=== PATIENT | male | born 1955 | race Caucasian/White ===

== ENCOUNTER 2017-09-18 05:26 | Day surgery (SDC) | payer OTHER ==
[~2017-09-18] VITALS: Ht 172.7 cm; Wt 113.4 kg
--- NOTE | ~2017-09-18 | S ---
[facility] [place] [address] SURGICAL PATH RPT PROCEDURE Name: ROCK WAGONER Room #: DEP [facility]..#: [id number] Admission: 09/18/17 Date of : 55 Discharge: 09/18/17 Report #: [id number] Path Case #: [id number] PATHOLOGY REPORT COLLECTION DATE: 09/18/2017 RECEIVED DATE: 09/18/2017 SUBMITTING PHYS: Dr. Logan Mike OTHER PHYS: SPECIMEN(S) RECEIVED: A.BCCA scalp, double strand is right, single strand is inferior, posterior B.Lesion left upper back C.Lesion Right lower back * * * * * * * * * * * * FINAL DIAGNOSIS: A. Skin, scalp, excision: - BASAL CELL CARCINOMA. - Margins of resection free of malignancy. B. Skin, lesion left upper back, excision: - Seborrheic keratosis. - Negative for malignancy. C. Skin, lesion right lower back, excision: - Junctional nevus arising in a background of lentigo. - Margins free. - Negative for malignancy. COMMENT: Immunohistochemical stain Melan-A is performed on block C and it supports the diagnosis rendered. Part C is co-reviewed with Dr. Teresa Ortega (board certified dermatopathologist). (IUV:[facility]; 09/21/2017) PATHOLOGIST: Latasha Collier M.D. REPORT ELECTRONICALLY SIGNED BY: Latasha Collier M.D. DATE/TIME: 09/22/2017 09:59 * * * * * * * * * * * * GROSS PATHOLOGY: A. Specimen is received fresh from the OR labeled with the patient's name, and "basal cell carcinoma scalp -double strand is right, single strand is inferior/posterior" consists of an oriented ellipse of skin measuring 1.8 x 1.5 x 0.5 cm. The double strand is assigned 12:00, the single strand is assigned 3:00, at this point the specimen is [address] [address] SURGICAL PATH RPT PROCEDURE Name: ROCK WAGONER Room #: DEP [facility].#: [id number] Admission: 09/18/17 Date of : 55 Discharge: 09/18/17 Report #: [id number] Path Case #: [id number] inked as follows: 12:00 to 3:00 to 6:00 is inked black, the 6:00 to 9:00 is inked blue, and the 9:00 to 12:00 is inked green. The specimen is serially sectioned and entirely submitted for frozen section in FSA1 and FSA2, these are subsequently submitted for permanent sections as A1 and A2. (IUV:pit; 09/19/2017) B. Received in formalin labeled "Rock Wagoner, lesion left upper back" is an unoriented skin ellipse measuring 1.0 x 0.8 x 0.8 cm. The skin surface has a centrally located kim-brown lesion measuring 0.4 x 0.4 by less than 0.1 cm. The margins are inked black. The specimen is serially sectioned into 5 pieces, and submitted entirely in cassette B1-B2. The tips are submitted in cassette B2. ([facility]; 09/19/2017) C. Received in formalin labeled "Rock Wagoner, lesion right lower back" is an unoriented skin ellipse measuring 1.1 x 0.8 x 0.7 cm. The skin surface has a centrally located flat kim-brown lesion measuring 0.4 x 0.4 cm. The margins are inked black. The specimen is serially sectioned into 4 pieces and submitted entirely in cassettes C1-C2. The tips are submitted in cassette C2. ([facility]; 09/19/2017) FROZEN SECTION DIAGNOSIS: FSA1, FSA2, skin, basal cell carcinoma scalp, excision: - BASAL CELL CARCINOMA. - Margins of resection without invasive carcinoma. - These findings are discussed with Dr. Logan Mike in OR 1 at [facility] and a written report is placed in the patient's chart. (IUV:[facility]; 09/19/2017) Frozen section performed by Dr. Parminder Collier at [address] , [place] [address] CLINICAL HISTORY: Basal cell carcinoma of the scalp, previously sampled basal cell carcinoma on a punch biopsy. INITIAL CPT CODE(S): A; 15455, 06626, 76091 B; 28549 C; 47625, 63608 Professional services performed by [facility] at [address] , [place] [address] Technical services performed by [facility] at [address] [place] [id number] SURGICAL PATH RPT PROCEDURE Name: ROCK WAGONER Room #: [facility] M.R.#: [id number] Admission: 09/18/17 Date of : 55 Discharge: 09/18/17 Report #: [id number] Path Case #: [id number] [place] [address]. [facility] [address] [place] [address] PHONE: [phone] DIRECTOR: Travis Bocanegra M.D. * * * END OF REPORT * * *
--- NOTE | ~2017-09-18 | O ---
[facility] [place] [address] OPERATIVE REPORT Name: ROCK GODFREY Room #: DEP [facility].#: [id number] Admission: 09/18/17 Attend Phys: Logan Mike MD Discharge: 09/18/17 Date of : 55 Report #: [id number] THIS REPORT FOR: //name// CC: Gisel Mike DATE OF SERVICE: 09/18/[address] Gisel Mike, Dr. Logan Mike. PREOPERATIVE DIAGNOSES: Basal cell carcinoma of the skin of the scalp measuring 4.3 x 2.6 cm, left upper back hyperpigmented skin lesion measuring 1.3 x 1.2 cm and lower back hyperpigmented skin lesion measuring 1.3 x 1.1 cm. PROCEDURE: Excision of 4.3 x 2.6 cm basal cell carcinoma of the skin and the scalp with complex layered closure and pathological consultation for frozen section of the margins, excision of left upper back 1.3 x 1.2 cm lesion and lower back 1.3 x 1.1 cm hyperpigmented skin lesion with simple closure. SURGEON: Logan Mike M.D. ANESTHESIA: Local. DESCRIPTION OF PROCEDURE: The patient was brought to the operating room and placed on operative table in the prone position. The scalp was shaved, prepped and draped in a sterile fashion along with the left upper back lesion. Skin and subcutaneous tissue were then infiltrated with 0.5% Marcaine and 1% Xylocaine in a 1:1 mixture. Elliptical skin incision measuring 4.3 x 2.6 cm was performed on the malignant scalp lesion using #15 scalpel blade. Hemostasis was obtained using electrocautery. Dissection was carried down through the subcutaneous tissue and widely around this malignant skin lesion. It was completely excised and oriented for the pathologist with a double strand nylon suture being left side and a single strand nylon suture being anterior posterior margin. This was then given to the pathologist in the operating room for gross and frozen section of the margins which was clear of any tumor. Meticulous hemostasis was obtained using electrocautery. Flaps were then developed superiorly, inferiorly, medially and laterally using the electrocautery. The deep subcutaneous tissue of the scalp was then reapproximated using simple interrupted 3-0 Vicryl sutures and the skin then closed with interrupted vertical mattress and simple 4-0 nylon sutures. Wound was then dressed with antibiotic ointment. Attention was then turned to the left upper back skin lesion measuring 1.3 x 1.2 cm. This was excised elliptically using #15 scalpel blade and sent as specimen to pathology. Hemostasis was obtained in the area using the electrocautery. The skin was then closed using interrupted vertical mattress and simple 4-0 nylon sutures. The lower back skin lesion was then prepped and draped in a sterile fashion and [address] [address] OPERATIVE REPORT Name: ROCK GODFREY Room #: DEP [facility] Josue#: [id number] Admission: 09/18/17 Attend Phys: Logan Mike MD Discharge: 09/18/17 Date of : 55 Report #: [id number] infiltrated with same local mixture. Elliptical skin incision was performed around this 1.3 x 1.1 cm hyperpigmented skin lesion and was completely excised and sent to pathology. The skin was then closed in 1 layer of simple and vertical mattress interrupted 4-0 nylon sutures and the wounds on the back were dressed with 4 x 4 gauze, sponge and tape. Antibiotic ointment was applied to each of these as well. The patient was then taken to the recovery room awake, alert and in good condition. Estimated blood loss was approximately 25 mL and the patient tolerated procedure well. All sponge, lap and instrument counts correct x 2. By: [id number] Logan Mike MD /nt
[~2017-09-18 05:26] MED LIST: ASPIRIN325 PO; ATORVASTATIN CA40 MG PO; COREG3.125 MG PO; FLOMAX0.4 MG PO; NIACIN500 MG PO; PROZAC20 MG PO; VALIUM5 MG; ZETIA10 MG PO
[2017-09-18] MEDS ORDERED: NORCO 5-325 TA1 EACH PO (15:49)
== END 2017-09-18 16:10 | disposition home or self-care (01) ==
LOC: OR 05:26 → TBA 05:26 → OR 11:23
DX: C44.41 Basal cell carcinoma of skin of scalp and neck (principal); L82.1 Other seborrheic keratosis; D22.5 Melanocytic nevi of trunk; I10 Essential (primary) hypertension; E78.5 Hyperlipidemia, unspecified; F32.89 Other specified depressive episodes; F41.8 Other specified anxiety disorders; Z95.5 Presence of coronary angioplasty implant and graft; Z91.040 Latex allergy status; Z98.890 Other specified postprocedural states; Z88.0 Allergy status to penicillin; Z79.899 Other long term (current) drug therapy; Z79.82 Long term (current) use of aspirin
CPT/HCPCS: 50010; 50101; 50386; 50403; 56524; 56526